=== PATIENT | male | born 1955 | race Caucasian/White ===

== ENCOUNTER 2019-11-29 21:31 | Inpatient (IN) | payer OTHER ==
[~2019-11-29] VITALS: Ht 180.3 cm; Wt 120.2 kg
[2019-11-29 22:49] VITALS: BP 146/61
--- NOTE | 2019-11-29 22:49 | NUR ---
DESHAUN. PT TRANSFERRED TO BED #12
--- NOTE | 2019-11-29 23:01 | NUR ---
64 Y/O MALE PRESENTS TO ED, C/O BODY ACHES. PT STATES PAIN PRESENTED LAST MONDAY ALONG WITH HEADACHE. PT C/O N/V; LAST EPISODE WAS AT ED. NO FEVER DURING ASSESSMENT. PT UNABLE TO AMBULATE DUE TO RIGHT KNEE ARTHRITIS. PT C/O DIFFICULTY BREATHING; LUNG SOUNDS BILAT CLEAR. NO SOB/RESPIRATORY DISTRESS NOTED. PT VSS. ERMD AWARE. WILL CONTINUE TO MONITOR.
[2019-11-30] VITALS (8 sets, daily range): BP systolic 93–146; BP diastolic 36–76
[2019-11-30] MEDS ORDERED: KETOROLAC 30 MG/ML VIAL IVP ONE (02:10)
--- NOTE | 2019-11-30 02:59 | NUR ---
BLOOD DRAWN AND SENT TO LAB AT THIS TIME
[2019-11-30 03:09] LABS: MEAN CORPUSCULAR HEMOGLOBIN 28 pg (27-31); MEAN CORPUSCULAR HGB CONC 31 g/dL (33-37); MEAN CORPUSCULAR VOLUME 91.3 fL (80-94); PLATELET COUNT (AUTO) 161 K/uL (140-450); RED BLOOD CELL COUNT(AUTO) 1.43 MIL/uL (4.20-6.10); RED CELL DISTRIBUTION WIDTH 20.9 % (11.6-13.7); WHITE BLOOD COUNT (AUTO) 18.3 K/uL (4.8-10.8)
[2019-11-30 03:27] LABS: ALBUMIN 1.8 g/dL (3.4-5.0); ANION GAP 12.6 (8-16); CARBON DIOXIDE 24.3 mmol/L (21-32); CREATININE 1.5 mg/dL (0.7-1.3); POTASSIUM 4.9 mmol/L (3.5-5.1); TOTAL BILIRUBIN 0.7 mg/dL (0.0-1.0)
[2019-11-30 03:33] LABS: HEMATOCRIT 13.1 % (36-52); HEMOGLOBIN 4.1 g/dL (12.0-18.0)
[2019-11-30 03:43] LABS: LYMPHOCYTES % (MANUAL) 13 % (20-46); MONOCYTES % (MANUAL) 5 % (5-12)
[2019-11-30] MEDS ORDERED: ONDANSETRON 4 MG/2 ML VIAL IM/IVP PRN (04:10)
[2019-11-30] MEDS ORDERED: ACETAMINOPHEN 325 MG TAB PO PRN (04:10)
[2019-11-30] MEDS ORDERED: DOCUSATE SODIUM 100 MG GELCAP PO PRN (04:10)
[2019-11-30] MEDS ORDERED: ALBUTEROL SULFATE/IPRATROPIU 3 ML SOL IH PRN (04:10)
--- NOTE | 2019-11-30 04:45 | NUR ---
Note denisse in ED - 11/30/19 at 0557 by SHEEBA PACKED RBC VERIFY WITH SHILPA NEVAREZ BEFORE START. VSS STABLE.
[2019-11-30] MEDS ORDERED: LORazepam 2 MG/ML VIAL IVP PRN (04:55)
[2019-11-30 05:24] LABS: APPEARANCE,URINE CLEAR (CLEAR); BILIRUBIN,URINE NEGATIVE (NEGATIVE); BLOOD, URINE NEGATIVE (NEGATIVE); COLOR,URINE YELLOW (YELLOW); LEUKOCYTE ESTERASE ,URINE NEGATIVE (NEGATIVE); NITRITE, URINE NEGATIVE (NEGATIVE); PH,URINE 5.5 (5.0-9.0); UGLUCOSE NEGATIVE (NEGATIVE)
[2019-11-30 05:27] LABS: MAGNESIUM 2.4 mg/dL (1.8-2.4); PHOSPHORUS 3.8 mg/dL (2.5-4.9)
[2019-11-30 05:36] LABS: IRON, SERUM 10 ug/dl (50-175); TOTAL IRON BINDING CAPACITY 211 ug/dl (250-450)
--- NOTE | 2019-11-30 05:45 | NUR ---
PACKED RBC VERIFY WITH SHILPA NEVAREZ BEFORE START. VSS STABLE.
--- NOTE | 2019-11-30 05:45 | NUR ---
BLOOD VERIFIED WITH BHARATI CHILDERS PT VSS. WILL CONTINUE TO MONITOR FOR ANY ADVERSE REACTIONS. Addendum: 11/30/19 at 0553 by [email or web address] PACKED RBC VERIFIED WITH BHARATI CHILDERS PT VSS. WILL CONTINUE TO MONITOR FOR ANY ADVERSE REACTIONS.
[2019-11-30 05:48] LABS: LACTATE DEHYDROGENASE 243 U/L (85-227)
[2019-11-30 05:52] LABS: BARBITURATE, URINE NEG. ng/ml (NEG <=200); BENZODIAZEPINE, URINE NEG. ng/mL (NEG <=200); CANNABINOID, URINE NEG. ng/mL (NEG <=50); COCAINE, URINE NEG. ng/mL (NEG <=300); OPIATE, URINE NEG. ng/mL (NEG <=2000); PHENCYCLIDINE SCREEN,URINE NEG. ng/mL (NEG <=25)
[2019-11-30] MEDS: PIPERACILLIN/TAZOBACTAM 3.375 GM in DEXTROSE 5% 50 ML IV SCH ×3 (06:00→18:07)
[2019-11-30] MEDS ORDERED: OCTREOTIDE ACETATE 1.25 MG in NACL 0.9% 250 ML IV SCH (06:00)
--- NOTE | 2019-11-30 06:20 | NUR ---
PATIENT TRANSFERRED TO ICU BED 7 VIA GURNEY, PATIENT's SON AT BEDSIDE. RECEIVED ENDORSEMENT FROM ER NURSE. PATIENT UNABLE TO ASSIST WITH TRANSFER, GENERALIZED WEAKNESS NOTED. SOUTH KOREAN SPEAKING BUT UNDERSTANDS SOME DIVEHI. ANOx1. ON ROOM AIR WITH SATURATIONS AT 96%, LUNG SOUNDS CLEAR. BREATHING IS UNLABORED. S1S2, SINUS RHYTHM ON MONITOR. POORLY KEPT PATIENT WITH ODOR AND FEET ARE COVERED WITH DIRT. SKIN IS INTACT,DIAPER IN PLACE. AFEBRILE. ABDOMEN IS SOFT AND NONTENDER WITH HYPERACTIVE BOWEL SOUNDS. LEFT AC 20G PERIPHERAL IV INTACT AND PATENT INFUSING ONE UNIT OF PRBC's @ 50ML/HR. STARTED 30 MINUTES AGO IN ER. BED IS LOCKED AND IN LOWEST POSITION, SIDERAILS UP x4, FALL PRECAUTIONS IN PLACE WITH SAFETY ALARMS, ORIENTED PATIENT TO TREATMENT PLAN AND CALL LIGHT. CALL LIGHT WITHIN REACH, MRSA SWAB COLLECTED. WILL CONTINUE TO MONITOR.
[2019-11-30 06:21] LABS: PROTHROMBIN TIME 13.1 secs (10.8-13.4)
[2019-11-30] MEDS ORDERED: MORPHINE SULFATE 2 MG/ML SYR IVP ONE (06:25)
--- NOTE | 2019-11-30 06:25 | NUR ---
PT ADMITTED TO ICU BED 7. TRANSFERRED PT VIA GURNEY WITH SHAYNA EMT; STABLE CONDITION. REPORT GIVEN TO DARIUS NEVAREZ. TRANSFER OF CARE AT THIS TIME.
--- NOTE | 2019-11-30 06:30 | NUR ---
INITIAL VITAL SIGNS HEART RATE 91 BPM, BP-109/31, TEMP 97.4, RESPIRATIONS 16, L1GCO-17%, DENIES PAIN AND NAUSEA OR VOMITING. CONNECTED TO TELE MONITOR. REQUESTING WATER BUT ORIENTED TO NPO STATUS.
--- NOTE | 2019-11-30 07:10 | NUR ---
RECEIVED PT FROM PEDIATRIC CARDIOLOGIST RN, DARIUS. PT IS AOX2, CONFUSED, BUT FOLLOW SIMPLE COMMANDS. DX ANEMIA. CC: VOMITING BLOOD AT HOME. PT HAS IV TO THE LEFT AC, 20G, RUNNING BLOOD TRANSFUSION. LUNG SOUNDS CLEAR TO AUSCULTATION, NO S/S OF DISTRESS IN ROOM AIR. BOWEL SOUNDS ACTIVE. PT HAS DARK RED STOOL. NPO EX MED. FALL PRECAUTIONS IN PLACE. BED LOCKED IN WILL CONTINUE TO MONITOR.
--- NOTE | 2019-11-30 08:10 | NUR ---
CLEANED PT, CHANGED LINENS, COLLECTED SPECIMEN. PT HAS SMALL OPEN WOUND NEAR THE ANUS.
--- NOTE | 2019-11-30 08:27 | NUR ---
PATIENT HAS BEEN SCREENED AND CATEGORIZED HIGH NUTRITION RISK. PATIENT WILL BE SEEN WITHIN 1-2 DAYS OF ADMISSION. 11/29/2019-12/01/[address]
[2019-11-30] MEDS: DEXT 5% /NACL 0.9% 1,000 ML IV SCH ×3 (08:40→15:44)
[2019-11-30] MEDS ORDERED: PANTOPRAZOLE 40 MG INJ VIAL IVP SCH (09:00)
[2019-11-30] MEDS ORDERED: fentaNYL 0.05 MG/ML VIAL ONE (09:21)
[2019-11-30] MEDS ORDERED: diphenhydrAMINE 50 MG/ML VIAL ONE (09:21)
[2019-11-30] MEDS ORDERED: MIDAZOLAM 2 MG/2 ML VIAL ONE ×2 (09:22)
--- NOTE | 2019-11-30 10:00 | NUR ---
DR LYLE IS HERE DOING EGD. DR FELIX SAID PT IS BLEEDING FROM ULCERS, FOUND 2 GASTRIC ULCERS AND ONE DUODENAL ULCER, AND HE CAUTERIZED THEM. DR LYLE SAID TO GIVE LOADING DOSE OF PROTONIX AND THEN FOLLOW BY 10MG/HR PROTONIX DRIP.
[2019-11-30] MEDS: MULTIVITAMIN-12 10 ML, THIAMINE 100 MG, MAGNESIUM SULFATE 50% 2,000 MG, FOLIC ACID 1 MG... IV SCH ×5 (10:05)
[2019-11-30] MEDS ORDERED: PANTOPRAZOLE 40 MG INJ VIAL IV SCH (10:45)
[2019-11-30] MEDS ORDERED: fentaNYL 0.05 MG/ML VIAL IVP ONE (10:50)
[2019-11-30] MEDS ORDERED: MIDAZOLAM 2 MG/2 ML VIAL IVP ONE (10:50)
[2019-11-30] MEDS: MULTIVITAMIN 1 TAB PO SCH (10:54)
[2019-11-30] MEDS: THIAMINE 100 MG TAB PO SCH (10:55)
[2019-11-30] MEDS: FOLIC ACID 1 MG TAB PO SCH (10:55)
[2019-11-30] MEDS: PANTOPRAZOLE 80 MG in NACL 0.9% 100 ML IV SCH ×2 (10:59→18:20)
[2019-11-30] MEDS: LORazepam 1 MG TAB PO SCH ×2 (12:21→18:04)
[2019-11-30] MEDS ORDERED: LACTULOSE 20 GM/30 ML UDC PO SCH (12:25)
--- NOTE | 2019-11-30 12:35 | NUR ---
DR HOLMAN ORDERED TO RECHECK CBC BEFORE THE 3RD OF BAG PRBC.
[2019-11-30 13:38] LABS: EOSINOPHILS % (AUTO) 0.1 % (0.0-4.0); LYMPHOCYTES # (AUTO) 1.6 K/uL (2.0-11.5); LYMPHOCYTES % (AUTO) 7.1 % (20.5-51.1); MEAN CORPUSCULAR HEMOGLOBIN 28 pg (27-31); MEAN CORPUSCULAR HGB CONC 31 g/dL (33-37); MEAN CORPUSCULAR VOLUME 90.8 fL (80-94); MONOCYTES # (AUTO) 2.1 K/uL (0.8-1.0); NEUTROPHILS # (AUTO) 19.4 K/uL (1.8-7.7); NEUTROPHILS % (AUTO) 83.8 % (42.2-75.2); PLATELET COUNT (AUTO) 157 K/uL (140-450); RED BLOOD CELL COUNT(AUTO) 1.89 MIL/uL (4.20-6.10); RED CELL DISTRIBUTION WIDTH 17.5 % (11.6-13.7); WHITE BLOOD COUNT (AUTO) 23.1 K/uL (4.8-10.8)
[2019-11-30 13:56] LABS: HEMATOCRIT 17.1 % (36-52); HEMOGLOBIN 5.3 g/dL (12.0-18.0)
--- NOTE | 2019-11-30 13:56 | NUR ---
MADE DR BOYCE AWARE HGB 5.6 AND WILL START THE 3RD PRBC.
--- NOTE | 2019-11-30 15:00 | NUR ---
CALLED DR HOLMAN, REPORTED LACTIC ACID 2.9. ASKED DR HOLMAN IF NS BOLUS IS NEEDED. DR HOLMAN SAID NO, JUST STARTED THE IVF D5NS ALONG WITH THE BANANA BAG.
--- NOTE | 2019-11-30 16:00 | NUR ---
PICC LINE NURSE CASEY, INSERTED PICC LINE. X-RAY WAS TAKEN. CASEY CHECKED THE IMAGE AND SAID OK TO USE.
--- NOTE | 2019-11-30 16:39 | NUR ---
11/30/19 RD INITIAL ASSESSMENT COMPLETED PLEASE REFER TO NUTRITION ASSESSMENT UNDER CARE ACTIVITY FOR ESTIMATED NUTRITIONAL NEEDS. 1. CONTINUE NPO NECESSARY 2. RECOMMEND HEPATIC DIET WHEN PT IS MEDICALLY STABLE TO RECEIVE NUTRITION 3. CONTINUE MVI, FOLATE, AND THIAMINE 4. RD TO FOLLOW-UP 2-3 DAYS, HIGH RISK JETHRO TEJEDA, RD
[2019-11-30] MEDS ORDERED: Z-GUARD PASTE TP ONE (16:58)
[2019-11-30] MEDS ORDERED: Z-GUARD PASTE TP PRN (17:50)
--- NOTE | 2019-11-30 17:50 | NUR ---
ASKED DR HOLMAN WHEN DOES SHE NEED THE NEXT CBC AND LACTIC ACID, DR HOLMAN SAID 30MIN AFTER THE 4TH PRBC FINISHES.
--- NOTE | 2019-11-30 18:20 | NUR ---
TOLD DR BOYCE THAT PT URINATED ONCE IN EARLY AM. BLADDER SCAN WAS DONE RIGHT NOW, 706ML. OFFERED PT URINAL BUT PT SAID HE DOESN'T FEEL LIKE TO URINATE. ASKED DR BOYCE IF NEED TO STRAIGHT CATH, DR BOYCE SAID WAIT UNTIL 9PM, DO ANOTHER BLADDER SCAN. IF IT'S LIKE 900ML, MAY STRAIGHT CATH. WILL ENDORSED TO QUALITY CONTROL REPRESENTATIVE RN.
--- NOTE | 2019-11-30 19:05 | NUR ---
RECEIVED REPORT FROM DAYSHIFT NURSE AT PATIENTS BEDSIDE. PATIENT AWAKE AND ALERT. NO COMPLAINTS AT THIS TIME, DENIES PAIN. PERRL, BRISK 3MM. ON ROOM AIR WITH SATURATIONS AT 100%, LUNG SOUNDS CLEAR WITH UNLABORED BREATHING, EQUAL CHEST RISE. S1S2, SR ON MONITOR. RIGHT UPPER ARM PICC LINE IN PLACE, DRESSING DRY AND INTACT, DOUBLE LUMEN, BOTH LINES PATENT. INFUSING 1 UNIT OF PRBC's AND OTHER LUMEN HAS PROTONIX @ 10ML/HR, D5NS @ 60 ML/HR, AND BANANA BAG @ 50 ML/HR. PERIPHERAL IV AT RIGHT HAND 20 G, FLUSHED WITHOUT SYMPTOMS AND SALINE LOCKED. ABDOMEN IS LARGE AND ROUND, NONTENDER, WITH HYPERACTIVE BOWEL SOUNDS. PATIENT IS CONTINENT WITH URINALS AT BEDSIDE AND ORIENTED TO CALL LIGHT AND TOILETING NEEDS. SMALL EXCORIATION NEAR RECTUM, DENIES PAIN. ZGUARD APPLIED. PATIENT IS COOPERATIVE AND FOLLOWS COMMANDS, ASSISTED WITH TURNING AND REPOSITIONING. SIDERAILS UPx4, BED LOCKED AND IN LOWEST POSITION. UPDATED ON CARE PLAN. WILL CONTINUE TO MONITOR.
--- NOTE | 2019-11-30 19:53 | NUR ---
PATIENT ALERTED RN FOR TOILETING NEEDS, VOIDED 700 ML OF DARK ESTEFANIA URINE. PROVIDED ARNIE CARE.
[2019-11-30 20:36] LABS: BASOPHILS % (AUTO) 0.2 % (0.0-2.0); EOSINOPHILS % (AUTO) 0.2 % (0.0-4.0); HEMATOCRIT 20.8 % (36-52); LYMPHOCYTES # (AUTO) 1.4 K/uL (2.0-11.5); LYMPHOCYTES % (AUTO) 7.4 % (20.5-51.1); MEAN CORPUSCULAR HEMOGLOBIN 29 pg (27-31); MEAN CORPUSCULAR HGB CONC 32 g/dL (33-37); MEAN CORPUSCULAR VOLUME 89.5 fL (80-94); MONOCYTES # (AUTO) 1.9 K/uL (0.8-1.0); MONOCYTES % (AUTO) 10.3 % (1.7-9.3); NEUTROPHILS # (AUTO) 15.1 K/uL (1.8-7.7); NEUTROPHILS % (AUTO) 81.9 % (42.2-75.2); PLATELET COUNT (AUTO) 116 K/uL (140-450); RED BLOOD CELL COUNT(AUTO) 2.33 MIL/uL (4.20-6.10); RED CELL DISTRIBUTION WIDTH 17.1 % (11.6-13.7); WHITE BLOOD COUNT (AUTO) 18.5 K/uL (4.8-10.8)
[2019-11-30 20:54] LABS: HEMOGLOBIN 6.6 g/dL (12.0-18.0)
--- NOTE | 2019-11-30 21:20 | NUR ---
PATIENT RESTING WELL IN BED, VITAL SIGNS STABLE AND DENIES PAIN AT THIS TIME. PATIENT ABLE TO INDEPENDENTLY SELF TURN. SIDERAILS UPx4.
--- NOTE | 2019-11-30 23:30 | NUR ---
PATIENT ASKING FOR BED [place], FOR BOWEL MOVEMENT. MILD WEAKNESS NOTED. PATIENT SLIGHTLY CONFUSED, TRYING TO GET OUT OF BED. REORIENTED PATIENT TO BED AND LYING DOWN. MODERATE SIZED SOFT AND DARK BROWN STOOL NOTED. PROVIDED SKIN CARE AND PERICARE.
[2019-12-01] VITALS (12 sets, daily range): BP systolic 112–177; BP diastolic 25–72
[2019-12-01] MEDS: LORazepam 1 MG TAB PO SCH ×4 (00:05→18:00)
[2019-12-01] MEDS: PIPERACILLIN/TAZOBACTAM 3.375 GM in DEXTROSE 5% 50 ML IV SCH ×4 (00:06→18:16)
--- NOTE | 2019-12-01 02:00 | NUR ---
5TH UNIT OF PRBC's STARTED, VERIFIED BLOOD BAG AND UNIT WITH CHARGE NURSE-2 PERSON VERIFICATION. PROVIDED EDUCATION TO PATIENT ABOUT LOW H&H LEVELS AND NEED FOR 2 MORE UNITS. VERBALIZES UNDERSTANDING. RN AT BEDSIDE TO MONITOR FOR REACTION.
--- NOTE | 2019-12-01 04:00 | NUR ---
PATIENT USED BEDPAN FOR BOWEL MOVEMENT, PATIENT SLIGHTLY CONFUSED, VOIDED ALL OVER BED AND MOVING AROUND GETTING TANGLED IN BLANKETS, NO BOWEL MOVEMENT. PROVIDED SPONGE BATH, PERICARE AND ORAL CARE. APPLIED ZGUARD TO RECTAL AREA FOR SMALL EXCORIATION. TURNED AND REPOSITIONED PATIENT AND ORIENTED TO CALL LIGHT AND URINAL AT BEDSIDE. VERBALIZED UNDERSTANDING.
--- NOTE | 2019-12-01 04:20 | NUR ---
5TH UNIT OF PRBC's COMPLETE, NO SIGNS AND SYMPTOMS OF REACTION. WILL START THE NEXT UNIT. PATIENT RESTING WELL, NO COMPLAINTS AT THIS TIME.
[2019-12-01] MEDS ORDERED: PANTOPRAZOLE 40 MG INJ VIAL ONE (05:20)
[2019-12-01] MEDS: PANTOPRAZOLE 80 MG in NACL 0.9% 100 ML IV SCH ×3 (05:25→21:17)
--- NOTE | 2019-12-01 05:58 | NUR ---
NOTIFIED RESIDENT MD THAT PATIENT IS RESTING WELL RIGHT NOW, NO CHANGES TO CONDITION, RECEIVING 6TH UNIT AND STILL SLIGHTLY CONFUSED WHEN AWAKE. CONFIRMED OK TO HOLD SCHEDULED ATIVAN PO AT THE TIME. WILL NOT ADMINISTER.
[2019-12-01 10:00] LABS: BASOPHILS % (AUTO) 0.1 % (0.0-2.0); EOSINOPHILS # (AUTO) 0.1 K/uL (0-0.4); EOSINOPHILS % (AUTO) 0.9 % (0.0-4.0); HEMATOCRIT 26.5 % (36-52); HEMOGLOBIN 8.5 g/dL (12.0-18.0); MEAN CORPUSCULAR HEMOGLOBIN 29 pg (27-31); MEAN CORPUSCULAR HGB CONC 32 g/dL (33-37); MONOCYTES # (AUTO) 1.2 K/uL (0.8-1.0); MONOCYTES % (AUTO) 8.4 % (1.7-9.3); NEUTROPHILS # (AUTO) 12.4 K/uL (1.8-7.7); NEUTROPHILS % (AUTO) 83.6 % (42.2-75.2); PLATELET COUNT (AUTO) 93 K/uL (140-450); RED BLOOD CELL COUNT(AUTO) 2.94 MIL/uL (4.20-6.10); RED CELL DISTRIBUTION WIDTH 16.1 % (11.6-13.7); WHITE BLOOD COUNT (AUTO) 14.8 K/uL (4.8-10.8)
[2019-12-01] MEDS: THIAMINE 100 MG TAB PO SCH (10:27)
[2019-12-01] MEDS: FOLIC ACID 1 MG TAB PO SCH (10:27)
[2019-12-01] MEDS: MULTIVITAMIN 1 TAB PO SCH (10:27)
[2019-12-01 11:10] LABS: ANION GAP 10.5 (8-16); CARBON DIOXIDE 25.8 mmol/L (21-32); CREATININE 1.7 mg/dL (0.7-1.3); POTASSIUM 4.3 mmol/L (3.5-5.1)
[2019-12-01 11:12] LABS: MAGNESIUM 2.8 mg/dL (1.8-2.4)
[2019-12-01] MEDS: MULTIVITAMIN-12 10 ML, THIAMINE 100 MG, MAGNESIUM SULFATE 50% 2,000 MG, FOLIC ACID 1 MG... IV SCH ×5 (12:00)
[2019-12-01 12:18] LABS: MAGNESIUM 2.8 mg/dL (1.8-2.4)
[2019-12-01 12:20] LABS: CHOL/HDL RATIO 5.4 (1-4.5)
[2019-12-01 15:08] LABS: FOLIC ACID 17.8 ng/mL (>3.0)
--- NOTE | 2019-12-01 17:00 | NUR ---
WAS HERE AND HE STATED THE PT MAY FINISH THE IVF HE HAS BUT THEN WE MAY STOP IT WHEN IT WAS DONE. THE PT HAS BEEN STABLE AND NOW MENTALLY ALERT AND ORIENTATED.
[2019-12-01] MEDS: NACL 0.45% 1,000 ML IV SCH (18:00)
--- NOTE | 2019-12-01 19:10 | NUR ---
RECEIVED REPORT FROM DAYSHIFT NURSE AT PATIENTS BEDSIDE, PATIENT AWAKE AND ALERT. FOLLOWS COMMANDS AND MAKES NEEDS KNOWN. PATIENT ABLE TO SELF TURN AND ALERT RN's OF TOILETING NEEDS. ON ROOM AIR, SATURATIONS 97%. LUNG SOUNDS CLEAR, BREATHING IS UNLABORED. S1S2, SR ON MONITOR. RIGHT UPPER ARM PICC LINE IN PLACE, FLUSHED AND PATENT WITHOUT SYMPTOMS. INFUSING BANANA BAG AT 50ML/HR, IV FLUIDS-D5NS@ 60ML/HR, AND PROTONIX DRIP @ 10ML/HR-8MG/HR. PERIPHERAL IV TO RIGHT WRIST, 20G, FLUSHED AND PATENT. ABDOMEN LARGE AND NONTENDER, ACTIVE BOWEL SOUNDS. URINAL AT BEDSIDE. SLIGHT DERMATITIS/REDNESS AT RECTAL AREA. BED IS LOCKED AND IN LOWEST POSITION, SIDERAILS UP X3, CALL LIGHT WITHIN REACH, AND UPDATED ON TREATMENT PLAN, VERBALIZES UNDERSTANDING,. NO COMPLAINTS AT THIS TIME. WILL CONTINUE TO MONITOR.
[2019-12-01 20:03] LABS: BASOPHILS # (AUTO) 0.1 K/uL (0.00-0.22); BASOPHILS % (AUTO) 0.5 % (0.0-2.0); EOSINOPHILS # (AUTO) 0.2 K/uL (0-0.4); EOSINOPHILS % (AUTO) 1.4 % (0.0-4.0); HEMATOCRIT 23.4 % (36-52); HEMOGLOBIN 7.5 g/dL (12.0-18.0); LYMPHOCYTES % (AUTO) 8.7 % (20.5-51.1); MEAN CORPUSCULAR HEMOGLOBIN 29 pg (27-31); MEAN CORPUSCULAR HGB CONC 32 g/dL (33-37); MEAN CORPUSCULAR VOLUME 90.4 fL (80-94); MONOCYTES # (AUTO) 1.2 K/uL (0.8-1.0); MONOCYTES % (AUTO) 10.4 % (1.7-9.3); NEUTROPHILS # (AUTO) 9.2 K/uL (1.8-7.7); PLATELET COUNT (AUTO) 83 K/uL (140-450); RED BLOOD CELL COUNT(AUTO) 2.59 MIL/uL (4.20-6.10); RED CELL DISTRIBUTION WIDTH 16.2 % (11.6-13.7); WHITE BLOOD COUNT (AUTO) 11.7 K/uL (4.8-10.8)
--- NOTE | 2019-12-01 21:00 | NUR ---
PATIENT REQUESTING FOOD AND DRINKS, STATING HE IS VERY HUNGRY. ORIENTED TO CLEAR LIQUID DIET. ALLOWED PATIENT TWO ORANGE JUICE BOXES AND CUP OF CRUSHED ICE. ORIENTED TO SIT UP WHEN DRINKING TO PREVENT ASPIRATION. PATIENT VERBALIZES UNDERSTANDING.
[2019-12-01] MEDS: PANTOPRAZOLE 40 MG TABEC PO SCH (21:17)
--- NOTE | 2019-12-01 22:05 | NUR ---
ONE UNIT OF PRBC's TRANSFUSION STARTED. VERIFIED BLOOD BAG, ID BAND, AND UNIT NUMBER WITH 2 RN VERIFICATION. ORIENTED PATIENT ON SIGNS AND SYMPTOMS OF REACTION AND TO ALERT RN IF EXPERIENCING SYMPTOMS. RN AT BEDSIDE TO ASSESS/MONITOR FOR ADVERSE REACTION.
--- NOTE | 2019-12-01 23:15 | NUR ---
PATIENT SAT UP AT BEDSIDE AND WAS DANGLING FEET. RN RAN TO ROOM AND PATIENT WAS SITTING AT EDGE OF BED USING URINAL. 800 ML OF ESTEFANIA COLORED URINE. RN EDUCATED PATIENT ON IMPORTANCE OF USING CALL LIGHT WHEN NEEDING TO VOID. PATIENT IS ORIENTED TO LOW H&H LEVELS AND EXPLAINED BLEEDING RISKS. VERBALIZES UNDERSTANDING. PATIENT BACK IN BED, SIDERAILS UPx3, CALL LIGHT WITHIN REACH.
[2019-12-02] VITALS (11 sets, daily range): BP systolic 131–172; BP diastolic 58–79
[2019-12-02] MEDS: LORazepam 1 MG TAB PO SCH ×5 (00:42→23:38)
[2019-12-02] MEDS: PIPERACILLIN/TAZOBACTAM 3.375 GM in DEXTROSE 5% 50 ML IV SCH ×5 (00:42→23:38)
--- NOTE | 2019-12-02 01:30 | NUR ---
ONE UNIT OF PRBC's COMPLETE, NO ADVERSE REACTION. PATIENT RESTING CALMLY. BLOOD BAG AND LINES DISCARDED IN BIOHAZARD BIN, YENI PICC LINE FLUSHED AND SALINE LOCKED. ALL NEEDS MET AT THIS TIME.
--- NOTE | 2019-12-02 03:05 | NUR ---
PATIENT GIVEN PILL WITH CRANBERRY JUICE. TOLERATED WELL. WILL CONTINUE TO MONITOR. NO SOB. VSS Addendum: 12/03/19 at 0307 by Noni Archuleta RN DATE WAS TO BE 12/02/20192034
--- NOTE | 2019-12-02 03:05 | NUR ---
PATIENT ASLEEP IN BED, EYES CLOSED, EQUAL CHEST RISE AND FALL, BREATHING IS UNLABORED, ON ROOM AIR, ALL VITAL SIGNS WITHIN NORMAL LIMITS. CALL LIGHT WITHIN REACH. PATIENT SELF TURNS.
--- NOTE | 2019-12-02 05:10 | NUR ---
PATIENT RESTING WELL IN BED, COMFORTABLE, EYES CLOSED. SAFETY ALARMS IN PLACE, TABLE TRAY WITHIN REACH, AND URINAL AT BEDSIDE. DENIES PAIN. PATIENT SELF TURNS IN BED. WILL CONTINUE TO MONITOR.
--- NOTE | 2019-12-02 06:00 | NUR ---
FLUSHED PERIPHERAL IV TO LEFT WRIST/FOREARM, PATIENT COMPLAINING OF PAIN AT THE SITE. D/C. HELD PRESSURE, NO SIGNIFICANT BLEEDING NOTED. CATHETER INTACT. YENI PICC IN PLACE, PATENT AND INFUSING.
[2019-12-02 06:41] LABS: BASOPHILS % (AUTO) 0.3 % (0.0-2.0); EOSINOPHILS # (AUTO) 0.2 K/uL (0-0.4); EOSINOPHILS % (AUTO) 1.8 % (0.0-4.0); HEMOGLOBIN 7.8 g/dL (12.0-18.0); LYMPHOCYTES # (AUTO) 1.1 K/uL (2.0-11.5); LYMPHOCYTES % (AUTO) 12.2 % (20.5-51.1); MEAN CORPUSCULAR HEMOGLOBIN 30 pg (27-31); MEAN CORPUSCULAR HGB CONC 33 g/dL (33-37); MEAN CORPUSCULAR VOLUME 90.7 fL (80-94); MONOCYTES # (AUTO) 1.1 K/uL (0.8-1.0); MONOCYTES % (AUTO) 11.9 % (1.7-9.3); NEUTROPHILS # (AUTO) 6.7 K/uL (1.8-7.7); NEUTROPHILS % (AUTO) 73.8 % (42.2-75.2); PLATELET COUNT (AUTO) 69 K/uL (140-450); RED BLOOD CELL COUNT(AUTO) 2.65 MIL/uL (4.20-6.10); RED CELL DISTRIBUTION WIDTH 16.3 % (11.6-13.7)
[2019-12-02 07:02] LABS: ANION GAP 10.1 (8-16); CREATININE 1.2 mg/dL (0.7-1.3); POTASSIUM 4.1 mmol/L (3.5-5.1)
[2019-12-02 07:13] LABS: MAGNESIUM 2.7 mg/dL (1.8-2.4)
--- NOTE | 2019-12-02 08:00 | NUR ---
PT SLEEPING COMFORTABLY WITH STABLE VS. REPORT RECIEVED FROM DARIUS NEVAREZ.
--- NOTE | 2019-12-02 09:00 | NUR ---
RECIEVED PT WHO WAS NAUSEATED WITH BLOODY STOOL. HE PRESENTED WITH HGB OF 4.1.\ THE PT DID HAVE A EGD DONE SEE REPORT. THE PT ALSO WAS TRANSFUSED 7 UNITS PRBCS. HE IS STABLE AND MOST LIKELY HE WILL TRANSFER TO TELE TODAY.
--- NOTE | 2019-12-02 10:00 | NUR ---
DR SNIDER HAS MADE ROUNDS. THE PTS HGB REMAINS LOW DESPITE 7UNITS OF PRBC TRANFUSIONS. NEW ORDER TO ADVANCE DIET
[2019-12-02] MEDS: PANTOPRAZOLE 80 MG in NACL 0.9% 100 ML IV SCH ×2 (10:09→18:32)
[2019-12-02] MEDS: PANTOPRAZOLE 40 MG TABEC PO SCH ×2 (10:10→20:32)
[2019-12-02] MEDS: FOLIC ACID 1 MG TAB PO SCH (10:10)
[2019-12-02] MEDS: NACL 0.45% 1,000 ML IV SCH (10:10)
[2019-12-02] MEDS: MULTIVITAMIN 1 TAB PO SCH (10:11)
[2019-12-02] MEDS: THIAMINE 100 MG TAB PO SCH (10:11)
--- NOTE | 2019-12-02 12:00 | NUR ---
PT C/O WEAKNESS BUT OTHERWISE OK. HE IS EATING HIS FULL LIQUID DIET.
--- NOTE | 2019-12-02 13:30 | NUR ---
SCREEN FOR LOW FRANCISCO SCALE AT RISK, CONTINUE TO FOLLOW PRESSURE ULCER PREVENTION INTERVENTIONS. PT. HAS IAD TO PERINEUM/ARNIE-ANAL AREA, WILL KEEP DRY AND CLEAN AND CHECK FOR DRYNESS Q2H. -CLEANSE PERINEUM AND PERIANAL AREA WITH MILD SOAP AND WATER, PAT DRY, APPLY Z GUARD BID AND PRN IF SOILING. -TURN AND REPOSITION PATIENT Q 2H -ASSESS AND MONITOR SKIN CONDITION DURING POSITION CHANGE -OFFLOAD BILATERAL HEELS BY PLACING PILLOWS UNDER CALVES AT ALL TIMES, UNLESS OTHERWISE CONTRAINDICATED -PRESSURE REDISTRIBUTION BY PLACING PILLOWS AND OFFLOADING SACRALCOCCYX -KEEP SKIN CLEAN AND DRY AT ALL TIMES.
--- NOTE | 2019-12-02 19:45 | NUR ---
PATIENT ALERT AND ORIENTED. LYING IN BED. AWAKENS TO VOICE. CLEAR SPEECH. STATES NO PAIN. ROOM AIR. PICC LINE RIGHT UPPER ARM. PERRLA. ABLE TO MOVE SELF. ABLE TO OBEY COMMANDS. STATES HX OF GI BLEED BY DAY SHIFT. STATES EGD DONE. STATES HAS 7TH UNIT OF BLOOD FINISHED LAST NIGHT. DENIES ORDER FOR MORE BLOOD TODAY. IVF NS AT 80 ML /HR. AND PROTONIX AT 10ML/HR . STATES FULL LIQUID DIET ORDERED AND USES URINAL. ABLE TO MAKE NEEDS KNOWN. ABLE TO OBEY COMMANDS. SR ON MONITOR. STATES SMALL ARNIE ANAL WOUND D/T DIARRHEA. REFUSED TO SHOW ME AT THIS TIME"LATER" "NO POOP NOW" "I WANT TO SLEEP RIGHT NOW". WILL CONTINUE TO MONITOR. VSS. NO SOB OR DISTRESS NOTED
--- NOTE | 2019-12-02 20:35 | NUR ---
PATIENT GIVEN PILL WITH CRANBERRY JUICE. TOLERATED WELL. WILL CONTINUE TO MONITOR. NO SOB. VSS
--- NOTE | 2019-12-02 22:00 | NUR ---
PATIENT USED CALL LIGHT STATES NEEDS TO POOP. PLACED ON BEDPAN WITHOUT INJURY. GOLF SIZE BM NOTED. DARK BROWN NOTED. SOFT. CLEANED PATIENT. WHEN ASKED IF CAN CLEAN BED AND GOWN. PATIENT STATES "LATER" "I WANT TO SLEE AGAIN, PLEASE TURN LIGHTS OFF " PATIENT USED URINAL BY SELF. ESTEFANIA COLORED URINE IN URINAL. NEW PULSE OX PLACED ON HAND. VSS. NO SOB OR DISTRESS NOTED. WILL CONTINUE TO MONITOR.
--- NOTE | 2019-12-02 22:25 | NUR ---
PATIENT GIVEN ICE CHIPS.TOLERATING WELL. NO CHOKING NOTED
--- NOTE | 2019-12-02 23:45 | NUR ---
PATIENT GIVEN MEDICATION ORDERED. TOLERATED WELL WITH MILKSHAKE. NO SOB OR DISTRESS NOTED.
[2019-12-03] VITALS: BP 133/62
--- NOTE | 2019-12-03 01:45 | NUR ---
PATIENT CHECKED. DENIES PAIN." IM OK". WILL CONTINUE TO MONITOR. VSS. NO SOB OR DISTRESS NOTED
--- NOTE | 2019-12-03 03:12 | NUR ---
PATIENT LYING IN BED. SLEEPING. VSS. NO SOB OR DISTRESS NOTED. WILL CONTINUE TO MONITOR.
[2019-12-03 04:00] VITALS: BP 142/87
[2019-12-03] MEDS: PANTOPRAZOLE 80 MG in NACL 0.9% 100 ML IV SCH (04:23)
--- NOTE | 2019-12-03 05:09 | NUR ---
MEDICATION GIVEN. CLEANED PATIENT. MORNING CARE. CHANGED BED. PACKED UP ALL BELONGINGS. VSS. DENIES PAIN. ABLE TO MAKE NEEDS KNOWN. WILL CONTINUE TO MONITOR.
[2019-12-03] MEDS: PIPERACILLIN/TAZOBACTAM 3.375 GM in DEXTROSE 5% 50 ML IV SCH ×3 (05:21→18:17)
[2019-12-03] MEDS: LORazepam 1 MG TAB PO SCH (05:21)
[2019-12-03 06:03] LABS: ANION GAP 11.6 (8-16); CARBON DIOXIDE 23.7 mmol/L (21-32); CREATININE 1.3 mg/dL (0.7-1.3); POTASSIUM 4.3 mmol/L (3.5-5.1)
[2019-12-03 06:09] LABS: BASOPHILS % (AUTO) 0.1 % (0.0-2.0); EOSINOPHILS % (AUTO) 0.1 % (0.0-4.0); HEMATOCRIT 22.9 % (36-52); HEMOGLOBIN 7.3 g/dL (12.0-18.0); LYMPHOCYTES # (AUTO) 0.8 K/uL (2.0-11.5); LYMPHOCYTES % (AUTO) 4.2 % (20.5-51.1); MEAN CORPUSCULAR HEMOGLOBIN 29 pg (27-31); MEAN CORPUSCULAR HGB CONC 32 g/dL (33-37); MEAN CORPUSCULAR VOLUME 90.6 fL (80-94); MONOCYTES # (AUTO) 1.2 K/uL (0.8-1.0); MONOCYTES % (AUTO) 6.6 % (1.7-9.3); NEUTROPHILS # (AUTO) 16.6 K/uL (1.8-7.7); PLATELET COUNT (AUTO) 57 K/uL (140-450); RED BLOOD CELL COUNT(AUTO) 2.52 MIL/uL (4.20-6.10); RED CELL DISTRIBUTION WIDTH 15.8 % (11.6-13.7); WHITE BLOOD COUNT (AUTO) 18.7 K/uL (4.8-10.8)
[2019-12-03 06:11] LABS: HEPATITIS A ANTIBODY IGM Negative (Negative); HEPATITIS B CORE AB TOTAL Negative (Negative); HEPATITIS B SURFACE ANTIBODY Non Reactive (.); HEPATITIS B SURFACE ANTIGEN Negative (Negative)
[2019-12-03 06:34] LABS: MAGNESIUM 2.4 mg/dL (1.8-2.4); PHOSPHORUS 3.5 mg/dL (2.5-4.9)
--- NOTE | 2019-12-03 06:45 | NUR ---
TRANSFER TO [facility]. MOVED PATIENT VIA WHEELCHAIR WITHOUT INJURIES. ON TELE MONITOR. NO SOB OR DISTRESS NOTED. AAOX4. MOVED TO [facility] BED WITHOUT INJURY. PATIENT STABLE IN BED AND PROTONIX DRIP STILL RUNNING. DENIES PAIN. ENDORSE TO DAY SHIFT.
--- NOTE | 2019-12-03 07:25 | NUR ---
RECEIVED BEDSIDE REPORT FROM ICU NURSE SHERRY. PT IS AWAKE, NO S/S OF DISTRESS. PT IS ON ROOM AIR, SKIN INTACT ASIDE FROM A SMALL SKIN OPENING ON THE PERIANAL AREA (CLEANED AND JAIME). PER ICU NURSE, PT HAS HAD A TOTAL OF 7 UNITS OF PRBC'S IN THE ICU. PT IS ON A FULL LIQUID DIET. PT HAS A YENI PICC LINE, INFUSING PROTONIX 10 ML/HR. CALL LIGHT IS WITHIN REACH. WILL CONTINUE TO MONITOR.
[2019-12-03 08:00] VITALS: BP 108/42
[2019-12-03] MEDS: PANTOPRAZOLE 40 MG TABEC PO SCH ×2 (11:54→22:50)
[2019-12-03] MEDS: MULTIVITAMIN 1 TAB PO SCH (11:54)
[2019-12-03] MEDS: FOLIC ACID 1 MG TAB PO SCH (11:55)
[2019-12-03] MEDS: THIAMINE 100 MG TAB PO SCH (11:55)
--- NOTE | 2019-12-03 11:59 | NUR ---
AM MEDS ADMINISTERED. PT TOLERATED WELL.
[2019-12-03 12:00] VITALS: BP 118/61
[2019-12-03 16:00] VITALS: BP 112/47
--- NOTE | 2019-12-03 16:31 | NUR ---
12/03/19 RD FOLLOW UP COMPLETED PLEASE REFER TO NUTRITION ASSESSMENT UNDER CARE ACTIVITY FOR ESTIMATED NUTRITIONAL NEEDS. 1. CONTINUE HEPATIC DIET TOLERATED 2. CONTINUE MVI, FOLATE, AND THIAMINE 3. RD TO FOLLOW-UP 3-5 DAYS, MODERATE RISK CATIE ALICEA, RD
--- NOTE | 2019-12-03 17:30 | NUR ---
PT REMINDED TO PROVIDE A URINE SAMPLE. CLEAN URINAL AND SAMPLE CUP PROVIDED. PT VERBALIZED UNDERSTANDING.
--- NOTE | 2019-12-03 18:42 | NUR ---
PT ATE 100% OF DINNER, SON IS VISITING AT BEDSIDE.
--- NOTE | 2019-12-03 19:30 | NUR ---
PT ENDORSED TO EDITORIAL CARTOONIST NURSE IN STABLE CONDITION.
--- NOTE | 2019-12-03 19:30 | NUR ---
RECIEVED PT AAOX4 , NID NO COMPLAIN MADE AT THIS TIME . PICC LINE INTACT AND PATENT . ON CARDIAC ,MONITOR . FOR COLLECTION OF SPECIMEN - URINE - RE INSTRUCTED THE PT. ON SAFETY / FALL PRCAUTION PROTOCOL - CALL LIGHT WITHIN REACH . POC DISCUSSED AND VERBALIZE UNDERSTANDING . WILL CONT. TO MONITOR.
[2019-12-03 20:00] VITALS: BP 110/60
[2019-12-04] VITALS: BP 110/69
--- NOTE | 2019-12-04 | NUR ---
MADE ROUNDS . NO COMPLAIN MADE AT THIS TIME.
[2019-12-04] MEDS: PIPERACILLIN/TAZOBACTAM 3.375 GM in DEXTROSE 5% 50 ML IV SCH ×4 (00:13→18:14)
--- NOTE | 2019-12-04 02:00 | NUR ---
SLEEPING - ON CHEF FRENCH.
[2019-12-04 04:00] VITALS: BP 122/60
[2019-12-04 06:17] LABS: ANION GAP 8.4 (8-16); CARBON DIOXIDE 25.5 mmol/L (21-32); POTASSIUM 3.9 mmol/L (3.5-5.1)
[2019-12-04 06:23] LABS: BASOPHILS % (AUTO) 0.2 % (0.0-2.0); EOSINOPHILS # (AUTO) 0.2 K/uL (0-0.4); EOSINOPHILS % (AUTO) 2.3 % (0.0-4.0); HEMATOCRIT 21.8 % (36-52); HEMOGLOBIN 7.1 g/dL (12.0-18.0); LYMPHOCYTES # (AUTO) 0.7 K/uL (2.0-11.5); LYMPHOCYTES % (AUTO) 9.8 % (20.5-51.1); MEAN CORPUSCULAR HEMOGLOBIN 30 pg (27-31); MEAN CORPUSCULAR HGB CONC 33 g/dL (33-37); MEAN CORPUSCULAR VOLUME 90.6 fL (80-94); MONOCYTES # (AUTO) 0.7 K/uL (0.8-1.0); MONOCYTES % (AUTO) 10.6 % (1.7-9.3); NEUTROPHILS # (AUTO) 5.3 K/uL (1.8-7.7); NEUTROPHILS % (AUTO) 77.1 % (42.2-75.2); PLATELET COUNT (AUTO) 48 K/uL (140-450); RED CELL DISTRIBUTION WIDTH 15.9 % (11.6-13.7); WHITE BLOOD COUNT (AUTO) 6.9 K/uL (4.8-10.8)
--- NOTE | 2019-12-04 07:31 | NUR ---
SHIFT REPORT RECEIVED FROM TRANSIT POLICE OFFICER NURSE. PT IS IN BED RESTING AT HIS TIME. NO DISTRESS NOTED. CALL LIGHT IN REACH.
[2019-12-04 08:00] VITALS: BP 118/52
--- NOTE | 2019-12-04 09:30 | NUR ---
PT IS IN BED IN STABLE CONDITION. NO DISTRESS NOTED. NO COMPLAINS OF PAIN. CALL LIGHT IN REACH.
[2019-12-04] MEDS: PANTOPRAZOLE 40 MG TABEC PO SCH ×2 (09:49→22:38)
[2019-12-04] MEDS: MULTIVITAMIN 1 TAB PO SCH (09:49)
[2019-12-04] MEDS: FOLIC ACID 1 MG TAB PO SCH (09:49)
[2019-12-04] MEDS: THIAMINE 100 MG TAB PO SCH (09:49)
--- NOTE | 2019-12-04 11:45 | NUR ---
PT HAS A BOWEL MOVEMENT. NOTED WITH MILD BLOODY STOOL. PT OTHERWISE STABLE AND AMBULATING. TOLERATING WELL.
[2019-12-04 12:00] VITALS: BP 124/61
--- NOTE | 2019-12-04 12:40 | NUR ---
BLOOD INFUSION STARTED AT 1225. STAYED WITH PATIENT FOR 15 MINUTES. CHECKED BLOOD PRESSURE AT 1240. VITAL SIGNS WERE WITHIN NORMAL LEVELS. NO DISTRESS NOTED. CALL LIGHT IN REACH.
--- NOTE | 2019-12-04 13:53 | NUR ---
IGNACIO assessment/discharge plan Name: Vipin Cortes Relationship: son Pre-Admission Living Arrangements: Lives with Other Other: two sons: Vipin and Benjamin Prior ADL Independent Current Home Health Name/Tel: N/A Current DME/02 Name/Tel: N/A Current Hospice Name/Tel: N/A Current Dialysis Name/Tel: N/A Healthcare Decision Maker: Patient Advance Directive No Information Taught: Advance Directive Community Resources Person Taught: Patient Teaching Tools: Community Resources Computer Generated Print Verbal Factors Affecting Learning: None Participation Level: Active Evaluation: Gestures Understanding Verbalizes Understanding Educator: IGNACIO Bunn Discipline: Case Mgt/Social Svcs Tentative Discharge Plan Summary: Patient is a 64 year old male admitted for severe anemia. I met with patient at bedside. Patient alert and oriented x4. Patient speaks Nepali. Patient lives at home with his two sons, Vipin and Benjamin. He plans to return home upon discharge. Patient does not have a pcp at this time. I emphasized to him the importance of following up with a physician post discharge and regularly. He verbalized understanding. Patient admitted drinking 2 beers daily for 25 years. He stated he does not drink "strong alcohol" and acknowledges drinking ongoing alcohol daily is harmful. He would like to quit drinking alcohol and thinks he can achieve this on his own. He is not interested on an alcohol/substance abuse treatment program. He denied hx of mental health. I provided him with education on [facility] www[facility]org for community resources. Cement Mixer Driver and/or Branch Associate Teller will follow up as needed. Signature: IGNACIO Bunn Date: Dec 04, 2019
--- NOTE | 2019-12-04 15:00 | NUR ---
PT IN STABLE CONDITION. CALL LIGHT IN REACH
[2019-12-04 16:00] VITALS: BP 133/60
--- NOTE | 2019-12-04 19:42 | NUR ---
RECIEVED PT AAOX4 , NID , HAD BT TODAY - BT RXN NOTED AT THIS TIME . W/ PICC LINE INTACT AND PATENT , DENIES ANY PAIN AT THIS TIME . PLAN OF CARE DISCUSSED AND VERBALIZE UNDERSTANDING . ON SAFETY / FALL PRECAUTION PROTOCOL - REMINDS THE USE OF CALL LIGHT WHENEVER HE WANTS TO GO TO BATHROOM - CALL LIGHT WITHIN REACH . WILL CONT. TO MONITOR .
--- NOTE | 2019-12-04 19:42 | NUR ---
SHIFT REPORT GIVEN TO PAINTING CONTRACTOR NURSE. PT IN STABLE CONDITION. CALL LIGHT IN REACH
[2019-12-04 20:00] VITALS: BP 130/70
[2019-12-04 21:31] LABS: BASOPHILS % (AUTO) 0.1 % (0.0-2.0); EOSINOPHILS # (AUTO) 0.1 K/uL (0-0.4); EOSINOPHILS % (AUTO) 1.6 % (0.0-4.0); HEMATOCRIT 25.2 % (36-52); HEMOGLOBIN 8.2 g/dL (12.0-18.0); LYMPHOCYTES # (AUTO) 0.7 K/uL (2.0-11.5); LYMPHOCYTES % (AUTO) 10.7 % (20.5-51.1); MEAN CORPUSCULAR HEMOGLOBIN 29 pg (27-31); MEAN CORPUSCULAR HGB CONC 32 g/dL (33-37); MEAN CORPUSCULAR VOLUME 90.1 fL (80-94); MONOCYTES # (AUTO) 0.9 K/uL (0.8-1.0); MONOCYTES % (AUTO) 12.9 % (1.7-9.3); NEUTROPHILS # (AUTO) 4.9 K/uL (1.8-7.7); NEUTROPHILS % (AUTO) 74.7 % (42.2-75.2); PLATELET COUNT (AUTO) 59 K/uL (140-450); RED BLOOD CELL COUNT(AUTO) 2.79 MIL/uL (4.20-6.10); RED CELL DISTRIBUTION WIDTH 15.8 % (11.6-13.7); WHITE BLOOD COUNT (AUTO) 6.6 K/uL (4.8-10.8)
--- NOTE | 2019-12-04 22:00 | NUR ---
REQUESTING JELL O - EDUCATES PT. ABOUT THE NURSING CARE FOR PT. W/ DX OF GI BLEEDING SUCH W0F CHAC OF STOOL AND HE VERBALIZE UNDERSTANDING . VANILLA PUDDING PROVIDED INSTEAD OF JELL O . WILL CONT. TO MONITOR.
--- NOTE | 2019-12-04 22:05 | NUR ---
RECEIVED PT ON ROOM AIR WITH SP02 OF 98% AND A CLEAR BREATH SOUNDS ON THE UPPER LOBES. NO RESPIRATORY DISTRESS NOTED AT THIS TIME. NO INDICATION FOR HHN PRN TX. WILL CONTINUE TO MONITOR PT.
[2019-12-05] VITALS: BP 118/70
--- NOTE | 2019-12-05 | NUR ---
RESTING ON BED . NO COMPLAIN MADE . CALL LIGHT WITHIN REACH.
[2019-12-05] MEDS: PIPERACILLIN/TAZOBACTAM 3.375 GM in DEXTROSE 5% 50 ML IV SCH ×3 (01:03→12:50)
--- NOTE | 2019-12-05 01:56 | NUR ---
SLEEPING . CHEST RISE AND FALL EQUALLY . CALL LIGHT WITHIN REACH.
[2019-12-05 04:00] VITALS: BP 110/60
--- NOTE | 2019-12-05 06:00 | NUR ---
MADE ROUNDS . NO COMPLAIN MADE .
[2019-12-05 06:07] LABS: BASOPHILS % (AUTO) 0.2 % (0.0-2.0); EOSINOPHILS # (AUTO) 0.1 K/uL (0-0.4); EOSINOPHILS % (AUTO) 1.9 % (0.0-4.0); HEMATOCRIT 27.2 % (36-52); LYMPHOCYTES % (AUTO) 13.6 % (20.5-51.1); MEAN CORPUSCULAR HEMOGLOBIN 30 pg (27-31); MEAN CORPUSCULAR HGB CONC 33 g/dL (33-37); MEAN CORPUSCULAR VOLUME 89.8 fL (80-94); MONOCYTES # (AUTO) 0.8 K/uL (0.8-1.0); NEUTROPHILS # (AUTO) 5.3 K/uL (1.8-7.7); NEUTROPHILS % (AUTO) 73.3 % (42.2-75.2); PLATELET COUNT (AUTO) 71 K/uL (140-450); RED BLOOD CELL COUNT(AUTO) 3.03 MIL/uL (4.20-6.10); RED CELL DISTRIBUTION WIDTH 15.6 % (11.6-13.7); WHITE BLOOD COUNT (AUTO) 7.2 K/uL (4.8-10.8)
--- NOTE | 2019-12-05 07:10 | NUR ---
RECEIVED REPORT FROM NIGHT NURSE. PATIENT IS ASLEEP, EASILY AROUSABLE BY NAME OR TOUCH. RESPIRATION EVEN AND UNLABORED. NO S/S OF RESPIRATORY DISTRESS. SKIN WARM AND DRY TO TOUCH. PICC LINE INTACT AND PATENT TO RIGHT FOREARM. PLANS OF CARE DISCUSSED. BED IN LOW POSITION. CALL LIGHT WITHIN REACH.
--- NOTE | 2019-12-05 07:10 | NUR ---
ENDORSE TO AM SHIFT . PT. STABLE - STILL FOR URINE COLLECTION.
[2019-12-05 08:00] VITALS: BP 148/59
[2019-12-05] MEDS ORDERED: MV M PO (08:32)
[2019-12-05] MEDS ORDERED: PANT40EC28 PO (08:32)
[2019-12-05] MEDS ORDERED: FERR325E14 PO (08:32)
[2019-12-05 08:43] LABS: ANION GAP 14.2 (8-16); CARBON DIOXIDE 23.8 mmol/L (21-32); CREATININE 1.1 mg/dL (0.7-1.3)
[2019-12-05] MEDS: PANTOPRAZOLE 40 MG TABEC PO SCH (08:59)
[2019-12-05] MEDS: FOLIC ACID 1 MG TAB PO SCH (08:59)
[2019-12-05] MEDS: MULTIVITAMIN 1 TAB PO SCH (08:59)
[2019-12-05] MEDS: THIAMINE 100 MG TAB PO SCH (08:59)
--- NOTE | 2019-12-05 09:00 | NUR ---
PT IS AAOX4. NO S/S OF DISTRESS NOTED. PATIENT IS WATCHING TV, ABLE TO MAKE NEEDS KNOWN. AM MEDICATIONS GIVEN ORDERED. CALL LIGHT WITHIN REACH.
--- NOTE | 2019-12-05 10:57 | NUR ---
ROQUE JEWELL REMAINED FOLLOW UP WITH DOCTOR AND TO GIVE BOTH VACCINES BEFORE DISCHARGE. PATIENT WANTS BOTH VACCINE UPON DISCHARGE.
--- NOTE | 2019-12-05 13:00 | NUR ---
ASKED PATIENT TIMES TO IN REGARDS TO GETTING FLU AND PNEUMONIA VACCINE. PATIENT STATED "NO, I DON'T NEED THAT NOW." PATIENT REFUSED.
--- NOTE | 2019-12-05 14:54 | NUR ---
Tamr EDITOR AT [employer] PHONE USED #[id number]. DISCHARGE INSTRUCTIONS, PRESCRIPTIONS DISCUSSED WITH PATIENT. ASKED PATIENT AGAIN IN REGARDS TO RECEIVING PNEUMONIA AND FLU VACCINE HERE BEFORE DISCHARGED. PATIENT CHANGED HIS MIND, STATED AND AGREED TO RECEIVE THE VACCINATIONS. PATIENT DID NOT WANT TO SIGN DISCHARGE PAPERWORK, STATED HE WILL WAIT FOR HIS SON TO ARRIVE.
[2019-12-05] MEDS ORDERED: INFLUENZA VACCINE QUAD 0.5 ML SYR IMVAC PRN (15:00)
[2019-12-05] MEDS ORDERED: PNEUMOCOCCAL VACCINE 23 MCG/0.5 ML VIAL IMVAC SCH (15:00)
--- NOTE | 2019-12-05 17:45 | NUR ---
SON IS HERE TO EVENT MARKETING ASSISTANT PATIENT VIA PRIVATE VEHICLE GOING TO HOME. ALL DISCHARGE PAPERWORK INSTRUCTIONS GIVEN AND ALL BELONGINGS GIVEN TO PATIENT. SON PROVIDED DISCHARGE CARE INSTRUCTIONS WELL. PICC LINE REMOVED, BLEEDING CONTROLLED. FLU AND PNEUMONIA VACCINE GIVEN ORDERED PER PATIENT REQUEST. PATIENT STABLE FOR DISCHARGE.
== END 2019-12-05 18:10 | disposition home or self-care (01) | DRG 377 ==
LOC: MED 21:31 → MIC 11-30 04:08 → MTU 12-03 06:45
PROVIDERS: ADMIT General Practice; ATTEND General Practice
PROC: 02HV33Z Insertion of Infusion Device into Superior Vena Cava, Percutaneous Approach (ICD-10-PCS; 2019-11-30)
PROC: B548ZZA Ultrasonography of Superior Vena Cava, Guidance (ICD-10-PCS; 2019-11-30)
PROC: 30233N1 Transfusion of Nonautologous Red Blood Cells into Peripheral Vein, Percutaneous Approach (ICD-10-PCS; principal; 2019-11-30 09:00)
PROC: 0W3P8ZZ Control Bleeding in Gastrointestinal Tract, Via Natural or Artificial Opening Endoscopic (ICD-10-PCS; 2019-11-30 09:00)
PROC: 3E02340 Introduction of Influenza Vaccine into Muscle, Percutaneous Approach (ICD-10-PCS; 2019-12-05)
PROC: 3E0234Z Introduction of Serum, Toxoid and Vaccine into Muscle, Percutaneous Approach (ICD-10-PCS; 2019-12-05)
DX: K26.4 Chronic or unspecified duodenal ulcer with hemorrhage (principal); N17.0 Acute kidney failure with tubular necrosis; E43 Unspecified severe protein-calorie malnutrition; R57.8 Other shock; G93.41 Metabolic encephalopathy; D62 Acute posthemorrhagic anemia; R65.10 Systemic inflammatory response syndrome (SIRS) of non-infectious origin without acute organ dysfunction; K25.4 Chronic or unspecified gastric ulcer with hemorrhage; I85.10 Secondary esophageal varices without bleeding; I12.9 Hypertensive chronic kidney disease with stage 1 through stage 4 chronic kidney disease, or unspecified chronic kidney disease; K70.30 Alcoholic cirrhosis of liver without ascites; N18.9 Chronic kidney disease, unspecified; E87.8 Other disorders of electrolyte and fluid balance, not elsewhere classified; W18.30XA Fall on same level, unspecified, initial encounter; Y90.0 Blood alcohol level of less than 20 mg/100 ml; F10.10 Alcohol abuse, uncomplicated; K72.90 Hepatic failure, unspecified without coma; R16.0 Hepatomegaly, not elsewhere classified; D69.6 Thrombocytopenia, unspecified; Z68.37 Body mass index [BMI] 37.0-37.9, adult; Z85.05 Personal history of malignant neoplasm of liver; Z82.49 Family history of ischemic heart disease and other diseases of the circulatory system; Y93.89 Activity, other specified; Y92.89 Other specified places as the place of occurrence of the external cause; Y99.8 Other external cause status; Z23 Encounter for immunization
CPT/HCPCS: 36415; 36600; 70450; 71045; 76700; 80048; 80053; 80305; 81003; 82105; 82140; 82150; 82272; 82378; 82607; 82728; 82746; 82803; 83036; 83540; 83605; 83615; 83690; 83735; 83880; 84100; 84134; 84443; 84484; 85025; 85045; 85610; 85730; 86140; 86677; 86704; 86706; 86708; 86709; 86803; 86886; 86900; 86901; 86920; 87040; 87081; 87340; 87804; 90732; 93005; 93880; 94640; 94660; 96374; 99285; A9153; C1751; C9113; G0482; J1200; J1885; J2250; J2354; J2405; J2543; J3010; J3411; J3475; J3490; J7030; J7042; J7060; P9016; Q0092